=== PATIENT | male | born 2000 | race Two or more races ===

== ENCOUNTER 2023-08-31 17:16 | Inpatient (IN) | payer MEDICAID, OTHER ==
[~2023-08-31] VITALS: Ht 165.1 cm; Wt 58.7 kg
[2023-08-31 19:34] LABS: Basophils # (auto) 0 10 ^3/uL (0-0.2); Basophils % (auto) 0.2 % (0.0-2.0); Eosinophils # (auto) 0 10 ^3/uL (0-0.8); Hematocrit 44.5 % (41.0-53.0); Hemoglobin 15.4 g/dL (13.5-17.5); Lymphocytes # (auto) 0.5 10 ^3/uL (0.4-5.4); Lymphocytes % (auto) 3.7 % (10.0-50.0); Mean Corpuscular Hemoglobin 31.5 pg (28.0-32.0); Mean Corpuscular Hgb Conc. 34.6 g/dL (32.0-36.0); Monocytes # (auto) 1.3 10 ^3/uL (0-1.3); Monocytes % (auto) 9.7 % (0.0-12.0); Neutrophils # (auto) 11.9 10 ^3/uL (1.6-8.6); Neutrophils % (auto) 86.4 % (37.0-80.0); Nucleated Red Blood Cells % 0.2 %; Red Cell Distribution Width 13.1 % (11.8-14.3); White Blood Cell 13.8 10^3/uL (4.4-10.8)
[2023-08-31 19:51] LABS: Alanine Aminotransferase 183 U/L (7-40); Albumin 4.8 g/dL (3.2-4.8); Alkaline Phosphatase 134 U/L (46-116); Anion Gap 7 (5-15); Aspartate Aminotransferase 48 U/L (13-40); Blood Urea Nitrogen 18 mg/dL (9-23); Calcium 10.3 mg/dL (8.7-10.4); Carbon Dioxide 26 mmol/L (20-30); Chloride 102 mmol/L (98-107); Glucose 129 mg/dL (74-106); Potassium 4.5 mmol/L (3.5-5.1); Sodium 135 mmol/L (136-145)
[2023-08-31 19:52] LABS: Bilirubin, Total 4.5 mg/dL (0.2-1.0); Total Protein 7.7 g/dL (5.7-8.2)
[2023-08-31 20:03] LABS: Lipase 26 U/L (12-53)
[2023-09-01] MEDS: IBUPROFEN 600 MG TAB PO ONE (00:50)
[2023-09-01] MEDS: FAMOTIDINE (10MG/ML) 2ML VL IV ONE (01:43)
[2023-09-01] MEDS: SODIUM CHLORIDE 0.9% 1,000 ML IV ONE (01:43)
[2023-09-01] MEDS: MORPHINE SULFATE 4 MG/ML SYR/VIAL IV ONE (01:44)
[2023-09-01] MEDS: ONDANSETRON HCL 4 MG/2 ML VIAL IV ONE (01:44)
[2023-09-01] MEDS: ACETAMINOPHEN 325 MG TAB PO ONE (02:33)
[2023-09-01 04:56] VITALS: PULSE 76; RESP 19; O2SAT 97
[2023-09-01 07:03] LABS: Urine Bacteria None Seen /hpf (None Seen)
[2023-09-01 07:21] LABS: Urine Blood Negative /uL (Negative); Urine Clarity Clear (Clear); Urine Color Yellow (Yellow); Urine Mucus FEW (None Seen); Urine Protein, UAD 1+ (Negative); Urine Specific Gravity 1.015 (1.001-1.035); Urine Urobilinogen Normal (Negative); Urine WBC 1 /hpf (0 - 3)
[2023-09-01 07:50] VITALS: PULSE 80; RESP 21; O2SAT 98
[2023-09-01] MEDS ORDERED: NITROGLYCERIN 0.4 MG SL TAB SL PRN (08:45)
[2023-09-01] MEDS ORDERED: MORPHINE SULFATE INJ 2 MG/ml SYRG IV PRN (08:45)
[2023-09-01] MEDS ORDERED: ACETAMINOPHEN 325 MG TAB PO PRN (08:45)
[2023-09-01] MEDS ORDERED: ONDANSETRON HCL 4 MG/2 ML VIAL IV PRN (08:45)
[2023-09-01] MEDS ORDERED: TEMAZEPAM 15 MG CAP PO PRN (08:45)
[2023-09-01 08:53] LABS: Hepatitis B Surface Antigen Negative (Negative)
[2023-09-01 09:13] LABS: Hepatitis A Ab IgM Negative
[2023-09-01 09:14] LABS: Hepatitis B Core IgM Negative; Hepatitis C Antibody Negative (Negative)
[2023-09-01] MEDS: LACTULOSE 20Gm/30ML SOLN PO SCH (09:58)
[2023-09-01] MEDS: ENOXAPARIN SOD 40 MG/0.4 ML SYRINGE SC SCH (10:00)
[2023-09-01 11:14] LABS: Amphetamine Screen, Urine Neg (NEGATIVE); Barbiturate Scree,Urine Neg (NEGATIVE); Benzodiazephine Screen, Urine Neg (NEGATIVE); Cannabinoid Screen, Urine Neg (NEGATIVE); Cocaine Screen, Urine Neg (NEGATIVE); Opiate Scree,Urine Neg (NEGATIVE); Phencyclidine Screen, Urine Neg (NEGATIVE)
[2023-09-01] MEDS: SODIUM CHLORIDE 0.9% 1,000 ML IV SCH (15:29)
[2023-09-01] MEDS: ACETAMINOPHEN 325 MG TAB PO PRN (16:17)
[2023-09-01 16:54] LABS: Rapid Influenza A Negative (Negative); Rapid Influenza B Negative (Negative)
[2023-09-01 17:33] VITALS: PULSE 80; RESP 24; O2SAT 94
[2023-09-01 17:34] VITALS: BP 113/68; PULSE 75; RESP 26; TEMP 98.7; O2SAT 94
[2023-09-01 20:00] VITALS: PULSE 89
[2023-09-01 21:00] VITALS: BP 130/77; PULSE 87; RESP 20; TEMP 98.5; O2SAT 96
[2023-09-02] VITALS (7 sets, daily range): BP systolic 105–139; BP diastolic 66–88; PULSE 63–96; RESP 16–20; TEMP 98.2–98.7; O2SAT 95–100
[2023-09-02] MEDS: DOCUSATE SOD 100 MG CAP PO PRN (04:53)
[2023-09-03] VITALS (8 sets, daily range): BP systolic 110–130; BP diastolic 58–75; PULSE 56–84; RESP 14–19; TEMP 97.6–98.7; O2SAT 96–99
[2023-09-03 13:48] LABS: Basophils # (auto) 0 10 ^3/uL (0-0.2); Basophils % (auto) 0.1 % (0.0-2.0); Eosinophils # (auto) 0 10 ^3/uL (0-0.8); Eosinophils % (auto) 0.2 % (0.0-7.0); Hematocrit 43.3 % (41.0-53.0); Hemoglobin 14.9 g/dL (13.5-17.5); Lymphocytes # (auto) 0.9 10 ^3/uL (0.4-5.4); Lymphocytes % (auto) 8.7 % (10.0-50.0); Mean Corpuscular Hemoglobin 31.5 pg (28.0-32.0); Mean Corpuscular Hgb Conc. 34.5 g/dL (32.0-36.0); Mean Corpuscular Volume 91.4 fL (80.0-100.0); Monocytes # (auto) 0.6 10 ^3/uL (0-1.3); Monocytes % (auto) 6.4 % (0.0-12.0); Neutrophils # (auto) 8.3 10 ^3/uL (1.6-8.6); Neutrophils % (auto) 84.6 % (37.0-80.0); Nucleated Red Blood Cells % 0.1 %; Red Blood Cells 4.74 10^6/uL (4.5-5.90); Red Cell Distribution Width 13.1 % (11.8-14.3); White Blood Cell 9.9 10^3/uL (4.4-10.8)
[2023-09-03 13:55] LABS: Alanine Aminotransferase 66 U/L (7-40); Albumin 4.3 g/dL (3.2-4.8); Alkaline Phosphatase 100 U/L (46-116); Anion Gap 9 (5-15); Aspartate Aminotransferase 11 U/L (13-40); BUN/Creatinine Ratio 10.8 (10.0-20.0); Blood Urea Nitrogen 8 mg/dL (9-23); Calcium 9.7 mg/dL (8.7-10.4); Carbon Dioxide 25 mmol/L (20-30); Chloride 102 mmol/L (98-107); Glucose 157 mg/dL (74-106); Magnesium 1.8 mg/dL (1.6-2.6); Potassium 3.5 mmol/L (3.5-5.1); Sodium 136 mmol/L (136-145)
[2023-09-03 13:57] LABS: Bilirubin, Total 2.4 mg/dL (0.2-1.0)
[2023-09-03] MEDS: cefTRIAXone 1GM/50ML D5W 50 ML IV SCH (18:07)
[2023-09-04] VITALS (8 sets, daily range): BP systolic 109–131; BP diastolic 57–81; PULSE 53–85; RESP 14–19; TEMP 98.3–98.8; O2SAT 95–99
[2023-09-04] MEDS: MORPHINE SULFATE INJ 2 MG/ml SYRG IV PRN (00:39)
[2023-09-05] VITALS (8 sets, daily range): BP systolic 99–119; BP diastolic 55–67; PULSE 53–69; RESP 16–19; TEMP 98.3–99; O2SAT 93–99
[2023-09-05 09:01] LABS: Hepatitis B Core Total AB Negative (Negative)
[2023-09-05 10:19] LABS: Hepatitis A Total Antibody Positive (Negative); Hepatitis B Surface Antibody Negative (Negative)
[2023-09-05 10:20] LABS: Hepatitis B Surface Antigen Negative (Negative); Hepatitis C Antibody Negative (Negative)
[2023-09-06] VITALS (8 sets, daily range): BP systolic 91–109; BP diastolic 49–61; PULSE 52–98; RESP 12–20; TEMP 97.5–98.2; O2SAT 96–100
[2023-09-06 06:55] LABS: Alanine Aminotransferase 44 U/L (7-40); Alkaline Phosphatase 123 U/L (46-116); Anion Gap 7 (5-15); BUN/Creatinine Ratio 16.3 (10.0-20.0); Blood Urea Nitrogen 14 mg/dL (9-23); Calcium 10.5 mg/dL (8.7-10.4); Carbon Dioxide 30 mmol/L (20-30); Chloride 102 mmol/L (98-107); Glucose 99 mg/dL (74-106); Potassium 4.1 mmol/L (3.5-5.1); Sodium 139 mmol/L (136-145)
[2023-09-06 06:56] LABS: Albumin 4.8 g/dL (3.2-4.8); Aspartate Aminotransferase 12 U/L (13-40); Bilirubin, Total 1.2 mg/dL (0.2-1.0)
[2023-09-07] VITALS (8 sets, daily range): BP systolic 100–105; BP diastolic 48–53; PULSE 48–65; RESP 16–20; TEMP 97.3–98.2; O2SAT 97–100
[2023-09-07 07:36] LABS: Alanine Aminotransferase 34 U/L (7-40); Alkaline Phosphatase 101 U/L (46-116); Anion Gap 7 (5-15); Aspartate Aminotransferase 12 U/L (13-40); BUN/Creatinine Ratio 14.3 (10.0-20.0); Blood Urea Nitrogen 12 mg/dL (9-23); Calcium 9.6 mg/dL (8.7-10.4); Carbon Dioxide 27 mmol/L (20-30); Chloride 105 mmol/L (98-107); Glucose 101 mg/dL (74-106); Potassium 4.2 mmol/L (3.5-5.1); Sodium 139 mmol/L (136-145)
[2023-09-07 07:37] LABS: Bilirubin, Total 0.7 mg/dL (0.2-1.0); Total Protein 6.7 g/dL (5.7-8.2)
[2023-09-08] VITALS (8 sets, daily range): BP systolic 91–156; BP diastolic 47–74; PULSE 47–71; RESP 16; TEMP 97.8–98.3; O2SAT 96–99
== END 2023-09-08 17:20 | disposition home or self-care (01) ==
LOC: ER 17:16 → TELE 09-01 08:42 → TELE-WESTW 09-01 08:52
PROVIDERS: ADMIT Nurse Practitioner; ATTEND Nurse Practitioner
DX: K82.8 Other specified diseases of gallbladder (principal); K75.9 Inflammatory liver disease, unspecified; F10.10 Alcohol abuse, uncomplicated; K59.00 Constipation, unspecified; R79.89 Other specified abnormal findings of blood chemistry; R74.8 Abnormal levels of other serum enzymes; Y90.0 Blood alcohol level of less than 20 mg/100 ml; Z83.3 Family history of diabetes mellitus; Z82.49 Family history of ischemic heart disease and other diseases of the circulatory system; Z90.49 Acquired absence of other specified parts of digestive tract
CPT/HCPCS: 36415; 74176; 74181; 78226; 80053; 80074; 80307; 80320; 81001; 82140; 83690; 83735; 85025; 86301; 86704; 86706; 86708; 86803; 87340; 87804; G0378; J3490; J7042

== ENCOUNTER 2024-08-04 18:41 | Emergency (ER) | payer SELFPAY ==
[~2024-08-04] VITALS: Ht 170.2 cm; Wt 58.3 kg
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
[2024-08-04] MEDS ORDERED: IBUP-1456 PO (21:30)
[2024-08-04] MEDS: HYDROcodone-ACET 5/325MG TAB PO ONE (22:53)
[2024-08-04 23:14] VITALS: BP 105/60; PULSE 78; RESP 16; TEMP 98.2; O2SAT 97
== END 2024-08-04 23:18 | disposition home or self-care (01) ==
LOC: ER 18:41
DX: S42.022A Displaced fracture of shaft of left clavicle, initial encounter for closed fracture (principal); S00.03XA Contusion of scalp, initial encounter; V89.2XXA Person injured in unspecified motor-vehicle accident, traffic, initial encounter; Y93.89 Activity, other specified; Y92.89 Other specified places as the place of occurrence of the external cause; Y99.8 Other external cause status
CPT/HCPCS: 70450; 72125; 73030